=== PATIENT | male | born 1975 | race Caucasian/White ===

== ENCOUNTER 2021-12-12 17:35 | Emergency (ER) | payer OTHER ==
[~2021-12-12] VITALS: Ht 182.9 cm; Wt 102.1 kg
[~2021-12-12 17:35] MED LIST: CYCL10 PO; Naprosyn500 MG PO; Ultram50 MG PO
== END 2021-12-13 00:03 | disposition home or self-care (01) ==
LOC: ER 17:35
DX: S61.211A Laceration without foreign body of left index finger without damage to nail, initial encounter (principal); W23.0XXA Caught, crushed, jammed, or pinched between moving objects, initial encounter
CPT/HCPCS: 73130